=== PATIENT | female | born 1990 | race African-American/Black ===

== ENCOUNTER 2017-01-20 19:35 | Emergency (ER) | payer MEDICARE, OTHER ==
[~2017-01-20] VITALS: Ht 167.6 cm; Wt 110.0 kg
[~2017-01-20 19:35] MED LIST: ALBU05 NEB; FLUT1DIS5 INH
[2017-01-20] MEDS ORDERED: ALBUTEROL (0.083%) 2.5MG/3ML NEB HHN STA (20:10)
[2017-01-20] MEDS ORDERED: MAGNESIUM 2 G PREMIX 50 ML IV STA (20:10)
[2017-01-20] MEDS ORDERED: METHYLPREDNISOLONE SOD SUCC 125 MG/2 ML VIAL IV STA (20:10)
[2017-01-20] MEDS ORDERED: IPRATROPIUM BROMIDE (0.02%) 0.5MG/2.5ML NEB HHN STA (20:10)
[2017-01-20 20:50] VITALS: BP 146/76
== END 2017-01-20 22:35 | disposition home or self-care (01) ==
LOC: ER 20:58
DX: J45.901 Unspecified asthma with (acute) exacerbation (principal); J44.9 Chronic obstructive pulmonary disease, unspecified; Z90.49 Acquired absence of other specified parts of digestive tract; Z92.29 Personal history of other drug therapy
CPT/HCPCS: 94640; 96365; 96375; 99284; J2930; J3475; J7611

== ENCOUNTER 2017-06-05 16:27 | Emergency (ER) | payer MEDICARE, OTHER ==
[~2017-06-05] VITALS: Ht 160 cm; Wt 100.0 kg
[2017-06-05] MEDS ORDERED: IPRATROPIUM/ALBUTEROL 0.5-3(2.5)MG/3ML NEB HHN ONE (19:15)
[2017-06-05 19:51] VITALS: BP 120/75
== END 2017-06-06 03:37 | disposition home or self-care (01) ==
LOC: ER 16:27
DX: J45.901 Unspecified asthma with (acute) exacerbation (principal); J84.89 Other specified interstitial pulmonary diseases; Z90.89 Acquired absence of other organs
CPT/HCPCS: 99283; J7620

== ENCOUNTER 2017-09-01 00:46 | Emergency (ER) | payer MEDICARE, OTHER ==
[~2017-09-01] VITALS: Ht 160 cm; Wt 100.0 kg
[2017-09-01] MEDS ORDERED: METHYLPREDNISOLONE SOD SUCC 125 MG/2 ML VIAL IV STA (01:30)
[2017-09-01] MEDS ORDERED: IPRATROPIUM BROMIDE (0.02%) 0.5MG/2.5ML NEB HHN STA (01:30)
[2017-09-01] MEDS ORDERED: ALBUTEROL (0.083%) 2.5MG/3ML NEB HHN STA (01:30)
[2017-09-01 05:03] VITALS: BP 126/81
== END 2017-09-01 05:08 | disposition home or self-care (01) ==
LOC: ER 00:46 → CANBEDREQ 07:19
DX: J45.901 Unspecified asthma with (acute) exacerbation (principal); Z88.8 Allergy status to other drugs, medicaments and biological substances; Z90.49 Acquired absence of other specified parts of digestive tract
CPT/HCPCS: 94640; 96374; 99284; J2930; J7611

== ENCOUNTER 2017-10-30 23:22 | Emergency (ER) | payer MEDICARE, OTHER ==
[~2017-10-30] VITALS: Ht 160 cm; Wt 105.0 kg
[2017-10-31] MEDS ORDERED: METHYLPREDNISOLONE SOD SUCC 125 MG/2 ML VIAL IV STA (02:09)
[2017-10-31] MEDS ORDERED: SODIUM CHLORIDE 0.9% 1,000 ML IV ONE (02:09)
[2017-10-31] MEDS ORDERED: IPRATROPIUM BROMIDE (0.02%) 0.5MG/2.5ML NEB HHN STA (02:09)
[2017-10-31] MEDS ORDERED: MAGNESIUM 2 G PREMIX 50 ML IV ONE (02:15)
[2017-10-31] MEDS ORDERED: ALBUTEROL (0.083%) 2.5MG/3ML NEB HHN SCH (02:30)
[2017-10-31 03:06] LABS: BASOPHILS % 0.4 % (0.0-2.0); EOSINOPHILS % 5.7 % (0.0-5.0); HEMATOCRIT. 36.2 % (36.0-48.0); HEMOGLOBIN. 12.6 g/dL (12.0-16.0); LYMPHOCYTES % 23.7 % (20.0-50.0); MEAN CORPUSCULAR HEMOGLOBIN 30.3 pg (28.0-32.0); MEAN CORPUSCULAR VOLUME 87.1 fL (81.0-99.0); MEAN PLATELET VOLUME 8.5 fl (7.4-10.4); NEUTROPHILS % 62.2 % (40.0-76.0); PLATELET 195 x1000/uL (130-400); RED BLOOD CELL COUNT 4.15 mill/uL (4.2-5.4); RED CELL DISTRIBUTION WIDTH 13.8 % (11.6-14.6)
[2017-10-31 03:15] LABS: CHLORIDE 107 mEq/L (98-107)
[2017-10-31 06:03] VITALS: BP 127/71
== END 2017-10-31 06:06 | disposition home or self-care (01) ==
LOC: ER 23:22
DX: O26.891 Other specified pregnancy related conditions, first trimester (principal); J45.901 Unspecified asthma with (acute) exacerbation; Z3A.09 9 weeks gestation of pregnancy; Z90.49 Acquired absence of other specified parts of digestive tract
CPT/HCPCS: 36415; 80053; 85025; 94640; 94660; 96365; 96375; 99291; J2930; J3475; J7030; J7611

== ENCOUNTER 2017-12-30 23:15 | Emergency (ER) | payer MEDICARE, OTHER ==
[~2017-12-30] VITALS: Ht 160 cm; Wt 100.0 kg
[2017-12-30] MEDS ORDERED: ALBUTEROL (0.083%) 2.5MG/3ML NEB HHN STA (23:53)
[2017-12-30] MEDS ORDERED: IPRATROPIUM BROMIDE (0.02%) 0.5MG/2.5ML NEB HHN STA (23:53)
[2017-12-30] MEDS ORDERED: METHYLPREDNISOLONE SOD SUCC 125 MG/2 ML VIAL IV STA (23:53)
[2017-12-31] MEDS ORDERED: MAGNESIUM 2 G PREMIX 50 ML IV ONE (00:30)
[2017-12-31] MEDS ORDERED: IPRATROPIUM BROMIDE (0.02%) 0.5MG/2.5ML NEB HHN STA (03:34)
[2017-12-31] MEDS ORDERED: ALBUTEROL (0.083%) 2.5MG/3ML NEB HHN STA (03:34)
[2017-12-31 04:40] VITALS: BP 131/74
== END 2017-12-31 05:17 | disposition left against medical advice (07) ==
LOC: ER 23:15 → EDBEDREQSVC 12-31 01:38 → EDBEDREQ 12-31 01:38 → ER 12-31 05:17
DX: J45.901 Unspecified asthma with (acute) exacerbation (principal); Z88.8 Allergy status to other drugs, medicaments and biological substances
CPT/HCPCS: 94644; 94660; 96365; 96375; 99291; J2930; J3475; J7611

== ENCOUNTER 2019-02-18 19:03 | Emergency (ER) | payer MEDICARE, OTHER ==
[~2019-02-18] VITALS: Ht 160 cm; Wt 106.0 kg
[2019-02-18] MEDS ORDERED: IPRATROPIUM BROMIDE (0.02%) 0.5MG/2.5ML NEB HHN STA (20:03)
[2019-02-18] MEDS ORDERED: PREDNISONE 20MG TABLET PO STA (20:03)
[2019-02-18] MEDS ORDERED: ALBUTEROL (0.083%) 2.5MG/3ML NEB HHN STA (20:03)
[2019-02-18] MEDS ORDERED: ALBUTEROL (0.5%) 2.5MG/0.5ML NEB HHN ONE (22:15)
[2019-02-18] MEDS ORDERED: ALBUTEROL (0.083%) 2.5MG/3ML NEB ONE (22:29)
[2019-02-18 23:00] VITALS: BP 141/79
== END 2019-02-18 23:00 | disposition home or self-care (01) ==
LOC: ER 19:03
DX: J45.901 Unspecified asthma with (acute) exacerbation (principal); Z90.49 Acquired absence of other specified parts of digestive tract; Z88.8 Allergy status to other drugs, medicaments and biological substances
CPT/HCPCS: 94640; 99283; J7512; J7611